=== PATIENT | female | born 1940 ===

== ENCOUNTER 2022-07-23 15:00 | Outpatient (CLI) | payer MEDICARE, BC | END 2022-07-23 15:01 | disposition home or self-care (01) | LOC: CSHWCC 15:00 | PROVIDERS: ATTEND Nurse Practitioner Family | DX: S61.209D Unspecified open wound of unspecified finger without damage to nail, subsequent encounter (principal); E11.311 Type 2 diabetes mellitus with unspecified diabetic retinopathy with macular edema; L03.012 Cellulitis of left finger; T23.222D Burn of second degree of single left finger (nail) except thumb, subsequent encounter; E11.40 Type 2 diabetes mellitus with diabetic neuropathy, unspecified; I10 Essential (primary) hypertension | CPT/HCPCS: 11042; 99203; G0463 ==